=== PATIENT | male | born 1945 | race Caucasian/White ===

== ENCOUNTER 2025-04-21 14:56 | Emergency (ER) | payer MEDICARE, OTHER, SELFPAY ==
[2025-04-21 14:59] VITALS: BP 117/88
[2025-04-21 15:53] VITALS: BP 124/85
[2025-04-21 16:01] VITALS: BMI 27.1
[2025-04-21 18:30] VITALS: BP 144/85
--- NOTE | 2025-04-21 22:34 | ED.MUSCINJ ---
HPI-Injury
General
Chief Complaint: Fall
Source: patient
Exam Limitations: none
Time Seen by Provider: 04/21/25 15:55
Nursing documentation reviewed up to this point in time: agreed with
History of Present Illness-Injury
Is this injury a work related problem?: No
Is pt an associate of [facility]/[place]?: No
Initial Injury comments:
Patient to ED after fall at home. States he lost his footing, fell onto grassy surface. Denies hitting his head. COmplains of pain to his low back. No radiation of pain, weakness in extremities, bowel or bladder issues. No saddle paresthesia. To ED
accompanied by spouse
Past History
Past History
ED Past Medical History: CVA and Hypercholesterolemia
Review of Systems
Review of Systems
Allergies reviewed?: Yes
All Other Systems: ROS reviewed and negative except as documented in HPI and ROS
Constitutional: Reports no symptoms
EENT: Reports no symptoms
Respiratory: Reports no symptoms
Cardiac: Reports no symptoms
ABD/GI: Reports no symptoms
: Reports no symptoms
Musculoskeletal: Reports back pain
Skin: Reports no symptoms
Neurological: Reports no symptoms
Psychiatric: Reports no symptoms
Musculoskeletal Injury Exam
Musculoskeletal Injury Exam
Bilateral Lower Back:
Pain with Movement?: Moderate
Tender to palpation?: Moderate
Soft tissue swelling?: None
External deformity and angulation?: None
Joint effusion?: None
Contusion?: Moderate
Hematoma-local bleeding into tissue?: None
Strain- Sprain- Tear (Connective tissue injury)?: Moderate
Crepitus with movement?: No
Joint instability?: No
Malalignment/deformity?: No
Range of motion: Full
Distal skin color and temperature: normal-warm & good color
Normal distal neurovascular exam?: Yes
Phy Exam
General Physical Exam
General Presentation: well appearing and no apparent distress
General age: appears stated age
General Skin: warm and dry
General Habitus: normal
General Mental: alert
Gastrointestinal Exam
Gastrointestinal Exam: non tender and soft
Neurological Exam
Neurological Exam: alert, oriented x3, CN II-XII intact, no motor deficits, no sensory deficits and speech normal
Musculoskeletal Exam
Musculoskeletal Exam: full ROM and neuro vasc intact
Skin Exam
Skin Exam: normal color, warm/dry and no rash
Psychiatric Exam
Psychiatric Exam: normal mood/affect
Injury Course
Orders/Labs/Results
Orders:
Orders
04/21/25 16:15
Lumbar Spine Complete, 4 View [CR Lumbar Spine Comp Min 4 Vw*] Urgent
Comment:
Reason For Exam: fall
*Radiology
Radiology exam reviewed: radiology read reviewed
*Pulse Oximetry
SaO2: 98
Oxygen Mode of Delivery: Room air
Patient hypoxic: no
*Critical Care Note
Total Time (30-74mins, 75-104mins- exclusive of procedures): Not Applicable
Update Note
Update Note:
Patient to ED after fall at home today. No head injury. Reports pain to his low back. No fx noted on exam. He is able to safely ambulate in room. Denies any weaknes, numbness/tingling. WIll discharge home and he will follow up with PCP. Given
instrcutions on s/s to return to ED and he is agreeable to plan
ED Attending Note
-
Portions of this chart may have been created with voice recognition software.� Occasional wrong word or��sound alike� substitutions may have occurred due to the inherent limitations of voice recognition software.
Discharge Plan
Departure
Patient Disposition: Home (Routine Discharge)
Date of Disposition: 04/21/25
Time of Disposition: 18:23
Patient with high blood pressure during this ER visit?: No
Condition: Good
Covid-19: Not Applicable
Discharge Problem:
Low back pain
Instructions: Preventing falls in adults, Cold therapy for pain, Back Pain
Prescriptions:
New
tramadol 50 mg tablet
50 mg PO Q8H PRN (Reason: Pain) Qty: 14 0RF
No Action
bisoprolol fumarate 5 MG tablet
5 mg PO QPM
tamsulosin 0.4 MG capsule
0.4 mg PO DAILY
ezetimibe-simvastatin 1 EACH tablet
1 ea PO QPM
apixaban [Eliquis] 5 MG tablet
5 mg PO BID
Referrals:
Sanchez Valenzuela MD [Family Provider, Internal Medicine]
Osiel Morin MD [Active, Orthopedics] - Next open appointment
Interventions
Interventions:
*Risk Screen - Suicide Last Done: 04/21/25 14:59
*General Assessment Last Done: 04/21/25 15:55
*Neglect/Abuse Screening Last Done: 04/21/25 14:59
*ED COVID-19 Vaccine History Last Done: 04/21/25 15:55
*ED Influenza Vaccine History Last Done: 04/21/25 15:55
*Nursing Disposition Last Done: 04/21/25 18:30
ED-Musculoskeletal Assessment Last Done: 04/21/25 15:55
ED- Neurological Assessment Last Done: 04/21/25 15:55
ED-Skin Assessment Last Done: 04/21/25 15:55
Discharge Date and Time
Discharge Date/Time: 04/21/25 18:30
Print Language: MAURITANIAN
== END 2025-04-21 18:30 | disposition home or self-care (01) ==
LOC: EMR 14:56
PROVIDERS: EMERGENCY PHYSICIAN Student in an Organized Health Care Education/Training Program; FAMILY PHYSICIAN Internal Medicine
DX: M54.50 Low back pain, unspecified (principal); W19.XXXA Unspecified fall, initial encounter; Y92.009 Unspecified place in unspecified non-institutional (private) residence as the place of occurrence of the external cause; E78.00 Pure hypercholesterolemia, unspecified; Z86.73 Personal history of transient ischemic attack (TIA), and cerebral infarction without residual deficits
CPT/HCPCS: 99283; 72110